=== PATIENT | female | born 1940 | race Caucasian/White ===

== ENCOUNTER 2018-12-10 09:02 | Emergency (ER) | payer MEDICARE, OTHER ==
--- NOTE | 2018-12-10 09:25 | Emergency Department Record ---
History of Present Illness - General Chief complaint: ENT Stated complaint: SORE THROAT Time Seen by Provider: 12/10/18 09:14 Source: Patient Mode of Arrival: Ambulatory Limitations: No limitations - History of Present Illness Initial comments: The patient is here due to a 5-7 day hx of a dry cough, ST, mild runny nose, and vague lower rib pain ONLY with coughing. She denies any CP, SOB, ALFRED, fever or sputum. MD complaint: Sore throat Onset/Timin -: Days(s) Location: Throat Severity: Mild Severity scale (1-10): 5 Quality: Aching, Burning Consistency: Constant Improves with: None Worsens with: None Associated Symptoms: Cough, Rhinorrhea, Sore throat - Related Data Previous Rx's Medication Instructions Recorded Potassium Chloride 20 meq PO DAILY #7 tab.er.prt 12/10/18 Prednisone [Prednisone 20Mg] 40 mg PO DAILY #8 tab 12/10/18 Allergies Allergy/AdvReac Type Severity Reaction Status Date / Time No Known Drug Allergies Allergy Verified 05/24/16 09:35 Travel Screening - Travel/Exposure Within Last 30 Days Have you traveled within the last 30 days?: No Review of Systems Constitutional: Reports: Malaise. Denies: Chills, Fever Eyes: Denies: Eye discharge ENT: Reports: Congestion Respiratory: Reports: Cough. Denies: Dyspnea Past Medical History - SOCIAL HISTORY Smoking Status: Never smoker Drug Use: None - RESPIRATORY Hx Respiratory Disorders: Yes Hx Pulmonary Embolism: Yes - CARDIOVASCULAR Hx Cardio Disorders: Yes Hx Deep Vein Thrombosis: Yes Hx Heart Attack: No - NEURO Hx Neuro Disorders: No - GI Hx GI Disorders: No Comment:: constipation - Hx Genitourinary Disorders: No - ENDOCRINE Hx Endocrine Disorders: No - MUSCULOSKELETAL Hx Musculoskeletal Disorders: Yes Hx Arthritis: Yes - PSYCH Hx Psych Problems: No - HEMATOLOGY/ONCOLOGY Hx Hematology/Oncology Disorders: No Family Medical History Any Significant Family History?: Yes Family Hx Comment (NOT TO BE USED IN PLACE OF ITEMS BELOW): See RN note. Reviewed Hx Cancer: Brother/Sister Hx Diabetes: Mother Hx HTN: Mother Hx Stroke: Father Physical Exam - General General Appearance: Alert, Oriented x3, Cooperative, No acute distress - Head Head exam: Atraumatic, Normocephalic, Normal inspection - Eye Eye exam: Normal appearance, PERRL, EOMI - ENT ENT exam: Normal exam, Mucous membranes moist, Normal external ear exam, Normal orophraynx, TM's normal bilaterally Throat exam: Normal inspection. negative: Tonsillar erythema, Tonsillar exudate - Neck Neck exam: Normal inspection, Full ROM. negative: Lymphadenopathy, Meningismus , Tenderness - Respiratory Respiratory exam: Normal lung sounds bilaterally. negative: Respiratory distress - Cardiovascular Cardiovascular Exam: Regular rate, Normal rhythm, Normal heart sounds - GI/Abdominal GI/Abdominal exam: Soft, Normal bowel sounds. negative: Tenderness - Extremities Extremities exam: Normal inspection, Full ROM, Normal capillary refill. negative: Tenderness - Neurological Neurological exam: Alert, Normal gait. negative: Abnormal gait, Motor sensory deficit Course Vital Signs 12/10/18 09:08 Temperature 98.1 F Pulse Rate 66 Respiratory 20 Rate Blood Pressure 177/98 Pulse Ox 96 - Reevaluation(s) Reevaluation #1: The patient is doing very well. I did discuss the neg xrays and normal lab work with the patient except for the slightly low potassium. She is to be discharged and will F/U with her PCP next week if not better. 12/10/18 10:04 Medical Decision Making - Data Complexity MDM Data: Labs Ordered and/or Reviewed, X-Ray Ordered and/or Reviewed - Lab Data Result diagrams: 12/10/18 09:30 12/10/18 09:30 - Radiology Data Radiology results: Report reviewed (CXR: Neg.) Disposition Disposition: Discharge Clinical Impression: URI, acute Disposition: Home, Self-Care Condition: (2) Stable Instructions: Upper Respiratory Infection (ED) Additional Instructions: Please take the potassium as directed along with a short course of oral steroids. Please see your family doctor if not better in 3 days. Return to the ER for any worsening symptoms. Prescriptions: Potassium Chloride 20 meq PO DAILY #7 tab.er.prt Prednisone [Prednisone 20Mg] 40 mg PO DAILY #8 tab Forms: Patient Portal Access Time of Disposition: 10:06 Quality - Quality Measures Quality Measures: N/A - Blood Pressure Screening View Details: Yes Does Patient Have Any of the Following: Active Dx of HTN Blood Pressure Classification: Hypertensive Reading Systolic Measurement: 177 Diastolic Measurement: 98 Screening for High Blood Pressure: Patient Exclusion, Hx of HTN [G9744]
[2018-12-10 09:36] LABS: BASO % 0.1 % (0-6); EOS % 0.5 % (0-6); GRAN % 73.9 % (47-80); HEMATOCRIT 41.8 % (35.0-47.0); HEMOGLOBIN 13.9 gm/dl (11.6-16.0); MEAN CELL VOLUME 96.1 fl (81-97); MEAN CORPUSCULAR HGB CONC 33.3 g/dl (32-36); MEAN PLATELET VOLUME 10.1 fl (7.4-10.4); MONO % 8.5 % (0-9); PLATELET COUNT 218 K/uL (130-400); RED BLOOD COUNT 4.35 M/uL (3.80-5.40); RED CELL DISTRIBUTION WIDTH 12.6 % (11.5-14.5); WHITE BLOOD COUNT W/O DIFF 8.2 K/uL (4.2-12.2)
[2018-12-10 09:51] LABS: BILIRUBIN,TOTAL 0.8 mg/dL (0.2-1.0); CREATININE 1.1 mg/dL (0.5-0.9); INR 1.9; PARTIAL THROMBOPLASTIN TIME 32.9 SECONDS (24.5-39.1); PROTHROMBIN TIME (PATIENT) 19.1 SECONDS (9.5-12.1)
[2018-12-10 09:52] LABS: TOTAL PROTEIN 7.6 g/dL (6.6-8.7)
[2018-12-10 09:56] LABS: ALB/GLOB RATIO 1.3 (1.1-1.8); ALBUMIN 4.3 g/dL (4.0-5.0)
--- NOTE | 2018-12-12 08:15 | RADIOLOGY REPORT ---
EXAM: CHEST, TWO VIEWS HISTORY: COUGH AND CONGESTION FOR ONE WEEK. TECHNIQUE: Two views of the chest were obtained. Comparison: 01/08/14. FINDINGS: The cardiomediastinal silhouette is unremarkable. The lungs and pleural spaces are essentially clear. There is suggestion of minimal atelectasis or scar left upper lobe. Mild degenerative changes of the thoracic spine. IMPRESSION: NO CONCLUSIVE ACUTE PROCESS. MINIMAL ATELECTASIS OR SCAR LEFT UPPER LOBE. JOB NUMBER: [id number] [facility]
== END 2018-12-10 10:12 | disposition home or self-care (01) ==
LOC: ER 09:02
DX: J06.9 Acute upper respiratory infection, unspecified (principal); R05 Cough; E87.6 Hypokalemia; I10 Essential (primary) hypertension
CPT/HCPCS: 71046; 80053; 85025; 85610; 85730; 99283; 99284

== ENCOUNTER 2019-07-18 15:19 | Inpatient (IN) | payer MEDICARE, OTHER ==
--- NOTE | 2019-07-18 15:50 | Emergency Department Record ---
History of Present Illness - General Chief Complaint: Altered Mental Status Stated Complaint: PSYCH EVALUATION Time Seen by Provider: 07/18/19 15:50 Source: Patient Mode of Arrival: EMS Limitations: No limitations - History of Present Illness Initial Comments: pt was found on her doorstep in a chair after her daughter had been unable to reach her for 2 days. pt states someone changed her locks and she was unabl to get into her house because she had no keys so she slept on the porch for up to2 days. pt has been showing increased confusio lately and was driving different places then she was supposed to. she is currently confused and has little rec ollection of current events. hx is sketchy but family is on the way MD Complaint: Altered mental status, Confusion -: Unknown Severity: Mild Consistency: Constant Associated Symptoms: Denies other symptoms - [place] Coma Scale Eye Response: (4) Open spontaneously Motor Response: (6) Obeys commands Verbal Response: (4) Confused conversation [place] Total: 14 - Related Data Previous Rx's Medication Instructions Recorded Potassium Chloride 20 meq PO DAILY #7 tab.er.prt 12/10/18 Allergies Allergy/AdvReac Type Severity Reaction Status Date / Time No Known Drug Allergies Allergy Verified 05/24/16 09:35 Travel Screening - Travel/Exposure Within Last 30 Days Have you traveled within the last 30 days?: No Review of Systems Reviewed: No additional complaints except as noted below Constitutional: Reports: As per HPI. Denies: Chills, Fever, Malaise, Night sweats, Weakness, Weight change Eyes: Reports: As per HPI. Denies: Eye discharge, Eye pain, Photophobia, Vision change ENT: Reports: As per HPI. Denies: Congestion, Dental pain, Ear pain, Epistaxis, Hearing loss, Throat pain Respiratory: Reports: As per HPI. Denies: Cough, Dyspnea, Hemoptysis, Stridor, Wheezes Cardiovascular: Reports: As per HPI. Denies: Arrhythmia, Chest pain, Dyspnea on exertion, Edema, Murmurs, Orthopnea, Palpitations, Paroxysmal nocturnal dyspnea, Rheumatic Fever, Syncope Endocrine: Reports: As per HPI. Denies: Fatigue, Heat or cold intolerance, Polydipsia, Polyuria Gastrointestinal: Reports: As per HPI. Denies: Abdominal pain, Constipation, Diarrhea, Hematemesis, Hematochezia, Melena, Nausea, Vomiting Genitourinary: Reports: As per HPI. Denies: Abnormal menses, Discharge, Dyspareunia, Dysuria, Frequency, Hematuria, Incontinence, Retention, Urgency Musculoskeletal: Reports: As per HPI. Denies: Arthralgia, Back pain, Gout, Joint swelling, Myalgia, Neck pain Skin: Reports: As per HPI. Denies: Bruising, Change in color, Change in hair/nails, Lesions, Pruritus, Rash Neurological: Reports: As per HPI, Confusion. Denies: Abnormal gait, Headache, Numbness, Paresthesias, Seizure, Tingling, Tremors, Vertigo, Weakness Psychiatric: Reports: As per HPI. Denies: Anxiety, Auditory hallucinations, Depression, Homicidal thoughts, Suicidal thoughts, Visual hallucinations Hematological/Lymphatic: Reports: As per HPI. Denies: Anemia, Blood Clots, Easy bleeding, Easy bruising, Swollen glands Past Medical History - SOCIAL HISTORY Smoking Status: Never smoker - RESPIRATORY Hx Respiratory Disorders: Yes Hx Pulmonary Embolism: Yes - CARDIOVASCULAR Hx Cardio Disorders: Yes Hx Deep Vein Thrombosis: Yes Hx Heart Attack: No - NEURO Hx Neuro Disorders: No - GI Hx GI Disorders: No Comment:: constipation - Hx Genitourinary Disorders: No - ENDOCRINE Hx Endocrine Disorders: No - MUSCULOSKELETAL Hx Musculoskeletal Disorders: Yes Hx Arthritis: Yes - PSYCH Hx Psych Problems: No - HEMATOLOGY/ONCOLOGY Hx Hematology/Oncology Disorders: No Family Medical History Any Significant Family History?: Yes Family Hx Comment (NOT TO BE USED IN PLACE OF ITEMS BELOW): See RN note. Reviewed Hx Cancer: Brother/Sister Hx Diabetes: Mother Hx HTN: Mother Hx Stroke: Father Physical Exam - General General Appearance: Alert, Oriented x3, Cooperative, No acute distress - Head Head exam: Normal inspection - Eye Eye exam: Normal appearance, PERRL, EOMI Pupils: Normal accommodation - ENT ENT exam: Normal exam, Mucous membranes moist, Normal external ear exam, Normal orophraynx Ear exam: Normal external inspection. negative: External canal tenderness Nasal Exam: Normal inspection. negative: Discharge, Sinus tenderness Mouth exam: Normal external inspection, Tongue normal Teeth exam: Normal inspection. negative: Dental caries Throat exam: Normal inspection. negative: Tonsillar erythema, Tonsillar exudate - Neck Neck exam: Normal inspection, Full ROM. negative: Tenderness - Respiratory Respiratory exam: Normal lung sounds bilaterally. negative: Respiratory distress - Cardiovascular Cardiovascular Exam: Regular rate, Normal rhythm, Normal heart sounds - GI/Abdominal GI/Abdominal exam: Soft, Normal bowel sounds. negative: Tenderness - Rectal Rectal exam: Deferred - exam: Deferred - Extremities Extremities exam: Normal inspection, Full ROM, Normal capillary refill. negative: Tenderness - Back Back exam: Reports: Normal inspection, Full ROM. Denies: Muscle spasm, Rash noted, Tenderness - Neurological Neurological exam: Alert, CN II-XII intact, Normal gait, Oriented X3, Other (confusion) - Psychiatric Psychiatric exam: Normal affect, Normal mood - Skin Skin exam: Dry, Intact, Normal color, Warm Course Vital Signs 07/18/19 15:32 Temperature 97.7 F Pulse Rate 72 Respiratory 18 Rate Blood Pressure 185/93 Pulse Ox 99 - Reevaluation(s) Reevaluation #1: 07/18/19 18:12 pt resting. 2012 acop guideines say inr4.5-10 no bleeding no vit k Medical Decision Making - Lab Data Result diagrams: 07/18/19 15:57 07/18/19 15:57 Disposition Disposition: Admit Clinical Impression: Change in mental status Qualifiers: Altered mental status type: unspecified Qualified Code(s): R41.82 - Altered mental status, unspecified Coumadin toxicity Qualifiers: Encounter type: initial encounter Injury intent: accidental or unintentional Qualified Code(s): T45.511A - Poisoning by anticoagulants, accidental (unintentional), initial encounter Disposition: Still a Patient at [facility] Decision to Admit: Admit from ER Decision to Admit Date: 07/18/19 Decision to Admit Time: 18:00 Instructions: Altered Mental Status (ED) Forms: Patient Portal Access Quality - Quality Measures Quality Measures: N/A - Blood Pressure Screening Does Patient Have Any of the Following: Active Dx of HTN Blood Pressure Classification: Hypertensive Reading Systolic Measurement: 185 Diastolic Measurement: 93 Screening for High Blood Pressure: Patient Exclusion, Hx of HTN [G9744]
[2019-07-18 15:59] LABS: URINE APPEARANCE CLEAR; URINE BILIRUBIN SMALL (NEGATIVE); URINE BLOOD TRACE-I (NEGATIVE); URINE COLOR YELLOW; URINE GLUCOSE (UA) NEGATIVE (NEGATIVE); URINE KETONE 15 mg/dL (NEGATIVE); URINE NITRITE NEGATIVE (NEGATIVE); URINE PROTEIN NEGATIVE (NEGATIVE); URINE UROBILINOGEN 0.2 E.U./dL (0.20 - 1.00)
[2019-07-18 16:07] LABS: ABSOLUTE NEUTROPHIL COUNT 10.01; BASO % 0.1 % (0-6); HEMATOCRIT 41.6 % (35.0-47.0); HEMOGLOBIN 13.6 gm/dl (11.6-16.0); LYMPH % 12.6 % (16-45); MEAN CELL VOLUME 96.1 fl (81-97); MEAN CORPUSCULAR HEMOGLOBIN 31.4 pg (27-33); MEAN CORPUSCULAR HGB CONC 32.7 g/dl (32-36); MEAN PLATELET VOLUME 9.9 fl (7.4-10.4); MONO % 9.3 % (0-9); PLATELET COUNT 209 K/uL (130-400); RED BLOOD COUNT 4.33 M/uL (3.80-5.40); RED CELL DISTRIBUTION WIDTH 13.7 % (11.5-14.5); WHITE BLOOD COUNT W/O DIFF 12.8 K/uL (4.2-12.2)
[2019-07-18 16:11] LABS: URINE EPITHELIAL CELLS 16 - 20 (FEW); URINE LEUKOCYTE ESTERASE TRACE (NEGATIVE)
[2019-07-18 16:16] LABS: BILIRUBIN,TOTAL 0.6 mg/dL (0.2-1.0); CREATININE 1.4 mg/dL (0.5-0.9)
[2019-07-18 16:17] LABS: TOTAL PROTEIN 7.8 g/dL (6.6-8.7)
[2019-07-18 16:21] LABS: ALB/GLOB RATIO 1.5 (1.1-1.8); ALBUMIN 4.7 g/dL (4.0-5.0)
[2019-07-18 16:30] LABS: INR 7.8; PROTHROMBIN TIME (PATIENT) 72.9 SECONDS (9.5-12.1)
[2019-07-18] MEDS ORDERED: ACETAMINOPHEN 500 MG TABLET PO PRN (19:09)
[2019-07-19] MEDS ORDERED: POLYETHYLENE GLYCOL 3350 238GM BOTTLE PO SCH (10:00)
[2019-07-19] MEDS ORDERED: HYDROCHLOROTHIAZIDE 25 MG TABLET PO SCH (10:00)
[2019-07-19] MEDS: ASPIRIN 81 MG TABEC PO SCH (10:43)
[2019-07-19] MEDS: ATENOLOL 50 MG TABLET PO SCH (10:43)
[2019-07-19] MEDS: LOSARTAN POTASSIUM 100 MG TABLET PO SCH (10:43)
[2019-07-19] MEDS: POTASSIUM CHLORIDE 20 MEQ TABLET PO SCH (10:43)
[2019-07-19] MEDS: SIMVASTATIN 10MG TABLET PO SCH (10:44)
[2019-07-19] MEDS: 0.9 % SODIUM CHLORIDE 1000ML 1,000 ML IV PRN ×2 (10:45→20:56)
--- NOTE | 2019-07-19 11:28 | History & Physical ---
History of Present Illness - Date of Service Date of Service for History & Physical: 07/20/19 - History of Present Illness Admitting Diagnosis: mental status changed, hyperanticoagulated, CASANDRA History of Present Illness: 07/18/19 Pt arrive to [facility] ER after daughter had police do a well check visit, pt was found on the porch. She reported to ER and police that "some changed the locks" on her home. Had been sleeping on the porch for possibly 2 days. Temp 97.7, HR 72, 185/93, RR 18, 99% RA WBC 12.8, Hgb 13.6, Hct 1.6, Plt 209 ESR 44 PT 72.9, INR 7.8 Na 145, K 3.5, Anion Gap 20, BUN 53, Cr 1.4, GFR 39, Glucose 112, Ca 10.7, AST 75, ALT 33, Alk Phos 57 Creatinine kinase 1362 UA has trace leuk estrace but high epithelial cells (contamination potential), ketones 15, and small bilirubin remaining normal Admit for hypercoagulation, confusion, and CASANDRA 07/19/19 pt is oriented to self, situation, time, and place but further details about orientation are off. Pt is unable to name the president, timeline to how long she had been on the porch, why she was on the porch and her medical history were not able to be verbalized. Pt is on blood thinner, does not know why or for how long. Pt reports she locked her keys and phone in the home, does not know when, how, or what task she was doing on the porch. She also did not go to neighbor for help. Pt has 3 children, daughter in [place], son in [place], and daughter in [place]. Daughter in [place] present today, states she is willing to have pt live with her on a permanent basis. Daughter has already made an establishing care appt Wednesday 3:30pm with new provider in [place]. No bruising noted, pt moving all extremities without difficulty. Lungs wheezing, adding alb neb tx. POC rehydration, holding coumadin, repeat labs in the AM. If RFTs resolve, pt to d/c with daughter and go immediately to [place] to live with daughter. Daughter has made an establish care appt for wednesday with her primary care office. legal coordinator facilitating PMH transfer from Dr Segal's office to new provider. PCP [facility] but pt moving to [place] immediately after d/c Travel Screening - Travel/Exposure Within Last 30 Days Have you traveled within the last 30 days?: No - Travel/Exposure Within Last Year Have you traveled outside the [place] in the last year?: No - Additonal Travel Details Have you been exposed to anyone with a communicable illness?: No - Travel Symptoms Symptom Screening: None Review of Systems Constitutional: Reports: As per HPI. Denies: Chills, Fever, Malaise, Night sw eats, Weakness, Weight change Eyes: Reports: As per HPI. Denies: Eye discharge, Eye pain, Photophobia, Vision change ENT: Reports: As per HPI. Denies: Congestion, Dental pain, Ear pain, Epistaxis, Hearing loss, Throat pain Respiratory: Reports: As per HPI. Denies: Cough, Dyspnea, Hemoptysis, Stridor, Wheezes Cardiovascular: Reports: As per HPI. Denies: Arrhythmia, Chest pain, Dyspnea on exertion, Edema, Murmurs, Orthopnea, Palpitations, Paroxysmal nocturnal dyspnea, Rheumatic Fever, Syncope Endocrine: Reports: As per HPI. Denies: Fatigue, Heat or cold intolerance, Polydipsia, Polyuria Gastrointestinal: Reports: As per HPI. Denies: Abdominal pain, Constipation, Diarrhea, Hematemesis, Hematochezia, Melena, Nausea, Vomiting Genitourinary: Reports: As per HPI. Denies: Abnormal menses, Discharge, Dyspareunia, Dysuria, Frequency, Hematuria, Incontinence, Retention, Urgency Musculoskeletal: Reports: As per HPI. Denies: Arthralgia, Back pain, Gout, Joint swelling, Myalgia, Neck pain Skin: Reports: As per HPI. Denies: Bruising, Change in color, Change in hair /nails, Lesions, Pruritus, Rash Neurological: Reports: As per HPI, Confusion. Denies: Abnormal gait, Headache, Numbness, Paresthesias, Seizure, Tingling, Tremors, Vertigo, Weakness Psychiatric: Reports: As per HPI. Denies: Anxiety, Auditory hallucinations, Depression, Homicidal thoughts, Suicidal thoughts, Visual hallucinations Hematological/Lymphatic: Reports: As per HPI. Denies: Anemia, Blood Clots, Easy bleeding, Easy bruising, Swollen glands Past Medical History - SOCIAL HISTORY Smoking Status: Never smoker - RESPIRATORY Hx Respiratory Disorders: Yes Hx Pulmonary Embolism: Yes - CARDIOVASCULAR Hx Cardio Disorders: Yes Hx Deep Vein Thrombosis: Yes Hx Heart Attack: No - NEURO Hx Neuro Disorders: No - GI Hx GI Disorders: No Comment:: constipation - Hx Genitourinary Disorders: No - ENDOCRINE Hx Endocrine Disorders: No - MUSCULOSKELETAL Hx Musculoskeletal Disorders: Yes Hx Arthritis: Yes - PSYCH Hx Psych Problems: No - HEMATOLOGY/ONCOLOGY Hx Hematology/Oncology Disorders: No Family Medical History Any Significant Family History?: Yes Hx Cancer: Brother/Sister Hx Diabetes: Mother Hx HTN: Mother Hx Stroke: Father H&P Meds/Allergies - Allergies Allergies: Allergies Allergy/AdvReac Type Severity Reaction Status Date / Time No Known Drug Allergies Allergy Verified 05/24/16 09:35 - Home Medications Previous Rx's Medication Instructions Recorded Potassium Chloride 20 meq PO DAILY #7 tab.er.prt 12/10/18 - Active Medications Active Medications: Current Medications Acetaminophen (Tylenol 500mg Tab) 1,000 mg PO Q6H PRN PRN Reason: PAIN - MILD(1-4)/FEVER Aspirin (Ecotrin (Ec)) 81 mg PO DAILY MIKE Atenolol (Tenormin) 100 mg PO DAILY MIKE Hydrochlorothiazide (Hctz 25mg) 25 mg PO DAILY MIKE Sodium Chloride () 1,000 mls @ 100 mls/hr IV .Q10H PRN PRN Reason: LARGE VOLUME IV Losartan Potassium (Losartan Potassium) 100 mg PO DAILY MIKE Polyethylene Glycol (Polyethylene Glycol 3350) 17 gm PO DAILY MIKE Potassium Chloride (Klor-Con) 20 meq PO DAILY MIKE Simvastatin (Zocor) 10 mg PO DAILY MIKE Physical Exam - Vital Signs Vital Signs: Vital Signs - Last 24 Hrs Temp Pulse Pulse Resp BP BP Pulse Ox 07/19/19 02:00 98.9 F 70 16 141/68 94 L 07/18/19 22:53 93 L 07/18/19 22:50 98.8 F 69 16 123/54 86 L 07/18/19 22:16 16 07/18/19 19:28 18 07/18/19 19:04 67 18 161/81 93 L 07/18/19 18:50 98.1 F 71 16 166/79 71 L 07/18/19 17:07 60 20 158/74 94 L 07/18/19 15:32 97.7 F 72 18 185/93 99 - General General Appearance: Alert, Oriented x3, Cooperative, No acute distress Limitations: No limitations - Head Head exam: Normal inspection - Eye Eye exam: Normal appearance, PERRL, EOMI Pupils: Normal accommodation - ENT ENT exam: Normal exam, Mucous membranes moist, Normal external ear exam, Normal orophraynx Ear exam: Normal external inspection. negative: External canal tenderness Nasal Exam: Normal inspection. negative: Discharge, Sinus tenderness Mouth exam: Normal external inspection, Tongue normal Teeth exam: Normal inspection. negative: Dental caries Throat exam: Normal inspection. negative: Tonsillar erythema, Tonsillar exudate - Neck Neck exam: Normal inspection, Full ROM. negative: Tenderness - Respiratory Respiratory exam: Normal lung sounds bilaterally. negative: Respiratory distress - Cardiovascular Cardiovascular Exam: Regular rate, Normal rhythm, Normal heart sounds - GI/Abdominal GI/Abdominal exam: Soft, Normal bowel sounds. negative: Tenderness - Rectal Rectal exam: Deferred - exam: Deferred - Extremities Extremities exam: Normal inspection, Full ROM, Normal capillary refill. negative: Tenderness - Back Back exam: Reports: Normal inspection, Full ROM. Denies: Muscle spasm, Rash noted, Tenderness - Neurological Neurological exam: Alert, CN II-XII intact, Normal gait, Oriented X3, Other (confusion) - Psychiatric Psychiatric exam: Normal affect, Normal mood - Skin Skin exam: Dry, Intact, Normal color, Warm Results - Labs Result Diagrams: 07/20/19 06:11 07/20/19 06:11 Labs Last 24 Hours: Laboratory Results - last 24 hr 07/18/19 07/18/19 07/18/19 15:55 15:57 15:57 WBC 12.8 H RBC 4.33 Hgb 13.6 Hct 41.6 MCV 96.1 MCH 31.4 MCHC 32.7 RDW 13.7 Plt Count 209 MPV 9.9 Gran % 78.0 Lymphocytes % 12.6 L Monocytes % 9.3 H Eosinophils % 0.0 Basophils % 0.1 Absolute Neutrophils 10.01 ESR PT INR Sodium 145 Potassium 3.5 Chloride 100 Carbon Dioxide 25.0 Anion Gap 20.0 H BUN 53 H Creatinine 1.4 H Estimated GFR 39 Random Glucose 112 H Lactic Acid Calcium 10.7 H Total Bilirubin 0.60 AST 75 H ALT 33 Alkaline Phosphatase 57 Creatine Kinase 1362 H Total Protein 7.8 Albumin 4.7 Globulin 3.1 Albumin/Globulin Ratio 1.5 Urine Color Yellow Urine Appearance Clear Urine pH 5.5 Ur Specific [place] 1.025 Urine Protein Negative Urine Glucose (UA) Negative Urine Ketones 15 mg/dl H Urine Blood Trace-i Urine Nitrite Negative Urine Bilirubin Small H Urine Urobilinogen 0.2 Ur Leukocyte Esterase Trace H Urine RBC 3 - 6 Urine WBC 3 - 5 Ur Epithelial Cells 16 - 20 07/18/19 07/18/19 07/18/19 15:57 15:57 15:57 WBC RBC Hgb Hct MCV MCH MCHC RDW Plt Count MPV Gran % Lymphocytes % Monocytes % Eosinophils % Basophils % Absolute Neutrophils ESR 44 H PT 72.9 H* INR 7.8 H* Sodium Potassium Chloride Carbon Dioxide Anion Gap BUN Creatinine Estimated GFR Random Glucose Lactic Acid 1.6 Calcium Total Bilirubin AST ALT Alkaline Phosphatase Creatine Kinase Total Protein Albumin Globulin Albumin/Globulin Ratio Urine Color Urine Appearance Urine pH Ur Specific [place] Urine Protein Urine Glucose (UA) Urine Ketones Urine Blood Urine Nitrite Urine Bilirubin Urine Urobilinogen Ur Leukocyte Esterase Urine RBC Urine WBC Ur Epithelial Cells - Imaging and Cardiology CT scan - head Status: Pending (auido clip reviewed) VTE H&P Assessment - Risk for VTE Risk for VTE: Yes Risk Level: High Risk Assessment Date: 07/20/19 Risk Assessment Time: 08: VTE Orders Placed or Will Be Placed: No VTE Reason for No Prophylaxis: Contraindicated (pt has elevated INR, once normalized will return to coumadin) Plan - Inpatient Certification Inpatient Certification: Admit to inpatient care: Based on my medical assessment, after consideration of patient's risk factors (age, co-morbidities and patient presenting symptoms and acuity), I expect that this patient will remain in the hospital greater than or equal to two midnights and that the services needed warrant inpatient care because: Patient Risk Factors: [] Estimated length of stay: [] The patient may reasonably be expected to be discharged or transferred to a hospital within 96 hours after admission to [facility]. Services needed: [] Post hospital care (if known): [] I certify that my determination is in accordance with my understanding of Medicare requirements for reasonable and necessary inpatient services. - Detailed Diagnosis and Plan (1) CASANDRA (acute kidney injury) Current Visit: Yes Status: Acute Base Code: N17.9 - ACUTE KIDNEY FAILURE, UNSPECIFIED Comment: 07/19/19 -BUN 53, Cr 1.4, GFR 39, CPK 1362 -NS IVF 100/hr, holding HCTZ -repeat labs in the AM, encourage fluids (2) Change in mental status Current Visit: Yes Status: Acute Qualifiers: Altered mental status type: unspecified Qualified Code(s): R41.82 - Altered mental status, unspecified Base Code: R41.82 - ALTERED MENTAL STATUS, UNSPECIFIED Comment: 07/19/19 -pt found on her porch by police, after daughter from [place] called for wellness check -police found pt confused, had been sleeping on her porch for 1-2 days, claiming "someone" had changed her locks, today pt is reporting she locked her phone and keys in the house but she does not recall how it happened -CT head neg for bleed, suggests MRI for ischemic changes, but coumadin level high -no signs of falls, bleeding, bruising -UA shows trace leuk but is heavily contaminated with skin cells, no fever or elevated WBC -daughter reports that pt has had mild increased confusion but this is a dramatic change from baseline, concerns for dehydration and exposure -monitor, rehydrate and reeval in the am, daughter from [place] is taking pt home to live with her after d/c (3) Coumadin toxicity Current Visit: Yes Status: Acute Qualifiers: Encounter type: initial encounter Injury intent: accidental or uni ntentional Qualified Code(s): T45.511A - Poisoning by anticoagulants, acc idental (unintentional), initial encounter Base Code: T45.511A - POISONING BY ANTICOAGULANTS, ACCIDENTAL, INIT Comment: 07/19/19 -INR 7.8 -PT 72.9 -repeat in the AM after holding for this past HS
[2019-07-20 06:16] LABS: ABSOLUTE NEUTROPHIL COUNT 5.24; BASO % 0.2 % (0-6); EOS % 0.9 % (0-6); GRAN % 58.2 % (47-80); HEMATOCRIT 38.7 % (35.0-47.0); HEMOGLOBIN 12.5 gm/dl (11.6-16.0); LYMPH % 27.7 % (16-45); MEAN CELL VOLUME 97.7 fl (81-97); MEAN CORPUSCULAR HEMOGLOBIN 31.6 pg (27-33); MEAN CORPUSCULAR HGB CONC 32.3 g/dl (32-36); MEAN PLATELET VOLUME 9.8 fl (7.4-10.4); PLATELET COUNT 170 K/uL (130-400); RED BLOOD COUNT 3.96 M/uL (3.80-5.40); RED CELL DISTRIBUTION WIDTH 13.6 % (11.5-14.5)
[2019-07-20] MEDS: ATENOLOL 50 MG TABLET PO SCH (06:19)
[2019-07-20] MEDS: LOSARTAN POTASSIUM 100 MG TABLET PO SCH (06:19)
[2019-07-20 06:36] LABS: ALB/GLOB RATIO 1.5 (1.1-1.8); ALBUMIN 3.7 g/dL (4.0-5.0); ALKALINE PHOSPHATASE 48 U/L (35-104); ALT/SGPT 25 U/L (<33); AST/SGOT 42 U/L (10.0-35.0); BLOOD UREA NITROGEN 24 mg/dL (8-23); CREATINE PHOSPHOKINASE 330 U/L (26-192); CREATININE 0.9 mg/dL (0.5-0.9); EST GLOMERULAR FILTRATION RATE > 60 mL/min; GLUCOSE,RANDOM 102 mg/dL (74-109); TOTAL PROTEIN 6.1 g/dL (6.6-8.7)
--- NOTE | 2019-07-20 08:12 | Discharge Summary ---
Providers Discharge Summary Date: 07/20/19 Date of admission: 07/18/19 18:48 Expected Date of Discharge: 07/20/19 Attending physician: BENNY LAUREN Primary care physician: Kenton Segal Physical Exam - Vital Signs Vital Signs: Vital Signs - Last 24 Hrs Temp Pulse Resp BP Pulse Ox 07/20/19 05:52 99.3 F 83 16 184/104 94 L 07/19/19 21:42 98.7 F 72 16 169/84 92 L 07/19/19 21:00 72 16 07/19/19 15:25 98.9 F 83 18 143/88 94 L 07/19/19 10:00 97.9 F 78 18 140/68 93 L 07/19/19 09:00 78 18 - General General Appearance: Alert, Oriented x3, Cooperative, No acute distress Limitations: No limitations, Other (impaired immediate recall memory) - Head Head exam: Normal inspection - Eye Eye exam: Normal appearance, PERRL, EOMI Pupils: Normal accommodation - ENT ENT exam: Normal exam, Mucous membranes moist, Normal external ear exam, Normal orophraynx Ear exam: Normal external inspection. negative: External canal tenderness Nasal Exam: Normal inspection. negative: Discharge, Sinus tenderness Mouth exam: Normal external inspection, Tongue normal Teeth exam: Normal inspection. negative: Dental caries Throat exam: Normal inspection. negative: Tonsillar erythema, Tonsillar exudate - Neck Neck exam: Normal inspection, Full ROM. negative: Tenderness - Respiratory Respiratory exam: Normal lung sounds bilaterally. negative: Respiratory distress - Cardiovascular Cardiovascular Exam: Regular rate, Normal rhythm, Normal heart sounds Peripheral Pulses: 3+: Radial (R), Radial (L), Dorsalis Pedis (R), Dorsalis Pedis (L) - GI/Abdominal GI/Abdominal exam: Soft, Normal bowel sounds. negative: Tenderness - Rectal Rectal exam: Deferred - exam: Deferred - Extremities Extremities exam: Normal inspection, Full ROM, Normal capillary refill. negative: Tenderness - Back Back exam: Reports: Normal inspection, Full ROM. Denies: Muscle spasm, Rash noted, Tenderness - Neurological Neurological exam: Alert, CN II-XII intact, Normal gait, Oriented X3, Other (confusion) - Psychiatric Psychiatric exam: Normal affect, Normal mood - Skin Skin exam: Dry, Intact, Normal color, Warm Hospitalization - Hospitalization Admission Diagnosis: mental status changed, hyperanticoagulated, CASANDRA - Problem List/Discharge Diagnosis (1) CASANDRA (acute kidney injury) Current Visit: Yes Status: Acute Base Code: N17.9 - ACUTE KIDNEY FAILURE, UNSPECIFIED Comment: 07/20/19 -BUN 53->24 Cr 1.4->0.9 GFR 39-->60 CPK 1362-->330 -BP elevated r/t holding HCTZ, adding Norvasc 2.5mg this AM 07/19/19 -BUN 53, Cr 1.4, GFR 39, CPK 1362 -NS IVF 100/hr, holding HCTZ -repeat labs in the AM, encourage fluids (2) Change in mental status Current Visit: Yes Status: Acute Discharge Diagnosis: Altered mental status type: unspecified Qualified Code(s): R41.82 - Altered mental status, unspecified Base Code: R41.82 - ALTERED MENTAL STATUS, UNSPECIFIED Comment: 07/20/19 -pt is alert and oriented x3, still not able to recall the details of sleeping on the porch -daughter present at bedside, has packed her bl 07/19/19 -pt found on her porch by police, after daughter from [place] called for wellness check -police found pt confused, had been sleeping on her porch for 1-2 days, claiming "someone" had changed her locks, today pt is reporting she locked her phone and keys in the house but she does not recall how it happened -CT head neg for bleed, suggests MRI for ischemic changes, but coumadin level high -no signs of falls, bleeding, bruising -UA shows trace leuk but is heavily contaminated with skin cells, no fever or elevated WBC -daughter reports that pt has had mild increased confusion but this is a dramatic change from baseline, concerns for dehydration and exposure -monitor, rehydrate and reeval in the am, daughter from [place] is taking pt home to live with her after d/c (3) Coumadin toxicity Current Visit: Yes Status: Acute Discharge Diagnosis: Encounter type: initial encounter Injury intent: accidental or unintentional Qualified Code(s): T45.511A - Poisoning by anticoagulants, accidental (unintentional), initial encounter Base Code: T45.511A - POISONING BY ANTICOAGULANTS, ACCIDENTAL, INIT Comment: 07/20/19 -INR 7.8-->2 -PT 72.9-->19.6 07/19/19 -INR 7.8 -PT 72.9 -repeat in the AM after holding for this past HS - Disposition 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 - Hospitalization Course Disposition: Home, Self-Care Hospital Course: 07/18/19 Pt arrive to [facility] ER after daughter had police do a well check visit, pt was found on the porch. She reported to ER and police that "some changed the locks" on her home. Had been sleeping on the porch for possibly 2 days. Temp 97.7, HR 72, 185/93, RR 18, 99% RA WBC 12.8, Hgb 13.6, Hct 1.6, Plt 209 ESR 44 PT 72.9, INR 7.8 Na 145, K 3.5, Anion Gap 20, BUN 53, Cr 1.4, GFR 39, Glucose 112, Ca 10.7, AST 75, ALT 33, Alk Phos 57 Creatinine kinase 1362 UA has trace leuk estrace but high epithelial cells (contamination potential), ketones 15, and small bilirubin remaining normal Admit for hypercoagulation, confusion, and CASANDRA 07/19/19 pt is oriented to self, situation, time, and place but further details about orientation are off. Pt is unable to name the president, timeline to how long she had been on the porch, why she was on the porch and her medical history were not able to be verbalized. Pt is on blood thinner, does not know why or for how long. Pt reports she locked her keys and phone in the home, does not know when, how, or what task she was doing on the porch. She also did not go to neighbor for help. Pt has 3 children, daughter in [place], son in [place], and daughter in [place]. Daughter in [place] present today, states she is willing to have pt live with her on a permanent basis. Daughter has already made an establishing care appt Wednesday 3:30pm with new provider in [place]. No bruising noted, pt moving all extremities without difficulty. Lungs wheezing, adding alb neb tx. POC rehydration, holding coumadin, repeat labs in the AM. If RFTs resolve, pt to d/c with daughter and go immediately to [place] to live with daughter. Daughter has made an establish care appt for wednesday with her primary care office. genetic coordinator facilitating PMH transfer from Dr Segal's office to [facility] [place]. PCP Ronald but pt moving to [place] immediately after d/c Procedures: Imaging and X-Rays 07/18/19 15:51 HEAD WO CONTRAST [CT] Stat Cardiology Procedures 07/18/19 16:03 EKG NOW Abnormal Labs: Abnormal Lab Results 07/18/19 07/18/19 07/18/19 Range/Units 15:55 15:57 15:57 WBC 12.8 H (4.2-12.2) K/uL MCV (81-97) fl Lymphocytes % 12.6 L (16-45) % Monocytes % 9.3 H (0-9) % ESR (0-30) mm/hr PT (9.5-12.1) SECONDS INR Carbon Dioxide (22-29) mmol/L Anion Gap 20.0 H (7-16) BUN 53 H (8-23) mg/dL Creatinine 1.4 H (0.5-0.9) mg/dL Random Glucose 112 H (74-109) mg/dL Calcium 10.7 H (8.8-10.2) mg/dL AST 75 H (10.0-35.0) U/L Creatine Kinase 1362 H (26-192) U/L Total Protein (6.6-8.7) g/dL Albumin (4.0-5.0) g/dL Urine Ketones 15 mg/dl H (NEGATIVE) Urine Bilirubin Small H (NEGATIVE) Ur Leukocyte Esterase Trace H (NEGATIVE) 07/18/19 07/18/19 07/20/19 Range/Units 15:57 15:57 06:11 WBC (4.2-12.2) K/uL MCV 97.7 H (81-97) fl Lymphocytes % (16-45) % Monocytes % 13.0 H (0-9) % ESR 44 H (0-30) mm/hr PT 72.9 H* (9.5-12.1) SECONDS INR 7.8 H* Carbon Dioxide (22-29) mmol/L Anion Gap (7-16) BUN (8-23) mg/dL Creatinine (0.5-0.9) mg/dL Random Glucose (74-109) mg/dL Calcium (8.8-10.2) mg/dL AST (10.0-35.0) U/L Creatine Kinase (26-192) U/L Total Protein (6.6-8.7) g/dL Albumin (4.0-5.0) g/dL Urine Ketones (NEGATIVE) Urine Bilirubin (NEGATIVE) Ur Leukocyte Esterase (NEGATIVE) 07/20/19 Range/Units 06:11 WBC (4.2-12.2) K/uL MCV (81-97) fl Lymphocytes % (16-45) % Monocytes % (0-9) % ESR (0-30) mm/hr PT (9.5-12.1) SECONDS INR Carbon Dioxide 30.0 H (22-29) mmol/L Anion Gap (7-16) BUN 24 H (8-23) mg/dL Creatinine (0.5-0.9) mg/dL Random Glucose (74-109) mg/dL Calcium (8.8-10.2) mg/dL AST 42 H (10.0-35.0) U/L Creatine Kinase 330 H (26-192) U/L Total Protein 6.1 L (6.6-8.7) g/dL Albumin 3.7 L (4.0-5.0) g/dL Urine Ketones (NEGATIVE) Urine Bilirubin (NEGATIVE) Ur Leukocyte Esterase (NEGATIVE) Condition at Discharge: (2) Stable Discharge Medications - Discharge Medications Home Medications: Ambulatory Orders Atenolol 1 tab PO DAILY 03/17/15 [Last Taken 05/23/16] Losartan/Hydrochlorothiazide [Losartan-Hctz 100-25 mg Tab] 1 tab PO DAILY 03/17/15 [Last Taken 05/23/16] Lovastatin 1 tab PO DAILY 03/17/15 [Last Taken 05/23/16] Polyethylene Glycol 3350 17 g PO DAILY 03/17/15 [Last Taken 05/23/16] Aspirin [Aspirin EC] 81 mg PO DAILY 04/23/15 [Last Taken 05/24/16] Potassium Chloride 20 meq PO DAILY #7 tab.er.prt 12/10/18 [Last Taken Unknown] Acetaminophen [Tylenol 500Mg Tab] 1,000 mg PO Q6H PRN tablet 07/20/19 [Last Taken Unknown] Amlodipine Besylate [Norvasc] 2.5 mg PO DAILY tab 07/20/19 [Last Taken Unknown] Amlodipine Besylate [Norvasc] 2.5 mg PO DAILY #10 tablet 07/20/19 [Last Taken Unknown] Losartan Potassium 100 mg PO DAILY #10 tablet 07/20/19 [Last Taken Unknown] Warfarin Sodium [Coumadin] 3 mg PO DAILY #10 tablet 07/20/19 [Last Taken Unknown] Discharge Plan - Discharge Instructions Activity at Discharge: Increase Activity as Tolerated Diet at Discharge: Advance to Usual Diet Instructions: Altered Mental Status (ED) Additional Instructions: New patient appointment with Dr. Lilly Rodrigues's office ([facility]) on Wednesday, July 24 at 3:30pm. You should add a B complex (something with B12), restarting coumadin at 3mg. Stopping hydrochlorothiazide because of recent dehydration, continue losartan 100mg, atenolol 100mg, and adding norvasc 2.5mg. Paper RX have been given, please fill these before tomorrow morning. Continue with your establishing care appt on wednesday wiht new provider. Quality Measures - Quality Measures Quality Measures: Advance Directives, Documentation of Current Medications in Medical Record, Elder Maltreatment Screen and Follow-Up Plan, Screening for High Blood Pressure and F/U Documented - Current Medications Quality Measure: Measure #130: Documentation of Current Medications Documentation of Current Medications: <Current Medications Documented/Reviewed> [G2837] - Blood Pressure Screening Quality Measure: Screening for High Blood Pressure and Follow-Up Documented Does Patient Have Any of the Following: Active Dx of HTN Blood Pressure Classification: Pre-Hypertensive BP Reading Systolic Measurement: 161 Diastolic Measurement: 81 Screening for High Blood Pressure: Patient Exclusion, Hx of HTN [G9744] - Advance Directives Quality Measure: Measure #47: Care Plan Advance Directives Established: No Advance Directives Information Provided To Patient: Yes Advance Directives on File: No Advance Care Planning: <Care Plan/Decision Maker Not Decided; Discussed & Documented> [3561E] - Elder Abuse Suspicion Index Screening: Elder Abuse Suspicion Index Screening Rely on people for bathing, dressing, shopping, banking, etc: No Prevented from getting food, clothes, medication, etc: No Made to feel shamed or threatened by someone: No Forced to sign papers or use money against will: No Feel afraid, touched in ways not wanted or hurt physically: No Poor eye contact, withdrawn, malnourished, cuts or bruises: No Screening Result: Negative result EASI Reference Information: Ghada HAGAN, Barrington C, Hermes D, Klaudia Fernandez.Development and validation of a tool to assist physicians identification of elder abuse: The Elder Abuse Suspicion Index (EASI ). Journal of Elder Abuse and Neglect, 2008; 20 (3): 276-300. - Elder Maltreatment Screen Quality Measures: Elder Maltreatment Screen and Follow-Up Plan Elder Maltreatment Screen: <Negative, No Follow-Up Plan Required> [G8951]
[2019-07-20 08:24] LABS: PROTHROMBIN TIME (PATIENT) 19.6 SECONDS (9.5-12.1)
[2019-07-20] MEDS: SIMVASTATIN 10MG TABLET PO SCH (09:03)
[2019-07-20] MEDS: POTASSIUM CHLORIDE 20 MEQ TABLET PO SCH (09:03)
[2019-07-20] MEDS: ASPIRIN 81 MG TABEC PO SCH (09:03)
[2019-07-20] MEDS ORDERED: POLYETHYLENE GLY 17 GM PACKET PO SCH (10:00)
[2019-07-20] MEDS ORDERED: AMLODIPINE BESYLATE 5MG TAB PO SCH (10:00)
--- NOTE | 2019-07-20 10:11 | CT SCAN REPORT ---
EXAM: CT OF THE BRAIN WITHOUT CONTRAST HISTORY: CONFUSION. ALTERED LEVEL OF CONSCIOUSNESS. TECHNIQUE: Routine noncontrast CT of the brain was obtained. Comparison: CT of the brain without contrast dated 12/30/13. FINDINGS: The original dictation was lost and repeat dictation is requested. The images are just now being presented to me for interpretation. A preliminary report was given to the Emergency Department immediately following the scan. There is mild prominence of the subarachnoid spaces consistent with age related atrophy. The ventricles are not enlarged. Moderate periventricular and subcortical white matter lucencies are scattered in each cerebral hemisphere relatively symmetrically. These are nonspecific, but likely areas of chronic microvascular ischemia. Benign bilateral basal ganglia calcifications are present. No other definite area of abnormally increased or decreased attenuation is noted throughout the brain substance. Evaluation of the brain stem is limited by artifact. No abnormal extraaxial fluid collection. There is mild mucosal thickening in the right maxillary sinus. The paranasal sinuses and mastoid air cells are clear. The orbits as visualized are unremarkable. IMPRESSION: 1. NO CT EVIDENCE OF ACUTE MAJOR VESSEL INFARCT, INTRACRANIAL HEMORRHAGE, NOR MASS. 2. 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 WHITE MATTER LUCENCIES SCATTERED IN EACH CEREBRAL HEMISPHERE ARE NONSPECIFIC, BUT LIKELY AREAS OF CHRONIC MICROVASCULAR ISCHEMIA. THESE HAVE MILDLY PROGRESSED SINCE 12/30/13. JOB NUMBER: [id number] MTDD
== END 2019-07-20 09:45 | disposition home or self-care (01) | DRG 948 ==
LOC: ER 15:19 → MEDSURG 18:48
PROVIDERS: ADMIT Internal Medicine; ATTEND Internal Medicine
DX: R41.82 Altered mental status, unspecified (principal); N17.9 Acute kidney failure, unspecified; T45.511A Poisoning by anticoagulants, accidental (unintentional), initial encounter; M19.90 Unspecified osteoarthritis, unspecified site; Z86.711 Personal history of pulmonary embolism; Z86.718 Personal history of other venous thrombosis and embolism; Z79.01 Long term (current) use of anticoagulants
CPT/HCPCS: 70450; 80053; 81001; 82550; 83605; 85025; 85610; 85651; 93005; 93010; 99223; 99285